=== PATIENT | female | born 1985 | race Caucasian/White ===

== ENCOUNTER 2022-02-14 07:30 | Emergency (ER) | payer BC, OTHER ==
[~2022-02-14] VITALS: Ht 162.6 cm; Wt 77.1 kg
[2022-02-14 07:30] VITALS: BP_SYST 114
--- NOTE | 2022-02-14 07:30 | NUR ---
PT STATES SHE BROUGHT HER AUNT INTO ER AND SUSPECTED EXPOSURE TO BACTERIAL MENINGITIS. PT STATES SHE CHECKED IN TO GET ANITBIOTICS. PT IS VERY EMOTIONAL ABOUT GETTING ABX DUE TO PAST EXPERIENCES WITH ABX. PT STATES MOST ABX CAUSE HER SEVERE PAIN. Patient triaged and placed in waiting room. VSS and patient appears in no acute distress at this time. Accompanied by SELF, awaiting available bed, and MD notified of need for MSE.
--- NOTE | 2022-02-14 08:55 | NUR ---
PT TOLD ADMITTING THEY WERE LEAVING WITHOUT BEING SEEN
== END 2022-02-14 08:55 | disposition left against medical advice (07) ==
LOC: SED 07:30
DX: G00.9 Bacterial meningitis, unspecified (principal); Z53.21 Procedure and treatment not carried out due to patient leaving prior to being seen by health care provider